=== PATIENT | female | born 1965 | race American Indian/Alaskan Native ===

== ENCOUNTER 2016-10-10 09:15 | Outpatient (CLI) | payer BC ==
--- NOTE | 2016-10-10 11:58 | Mammography Report ---
BILATERAL MAMMOGRAM: FINDINGS: The breast tissue is heterogeneously dense, which could obscure detection of small masses (approximately 50%-75% glandular). No mass, distortion, suspicious calcification, or skin change is seen. CAD was utilized. IMPRESSION: Negative mammogram. There is no mammographic evidence of malignancy. RECOMMENDATION: Follow-up per ACS guidelines. BI-RADS CATEGORY: 1 = Negative ACR BI-RADS MAMMOGRAPHIC CODES: 0 = Needs additional imaging evaluation; 1 = Negative; 2 = Benign; 3 = Probably benign; 4 = Suspicious; 5 = Malignant; 6 = Known biopsy-proven malignancy COMMENT: 1. Dense breast tissue, i.e., adenosis, fibrocystic changes, etc., may obscure an underlying neoplasm. 2. Approximately 10% of cancers are not detected with mammography. 3. A negative mammography report should not delay biopsy if a clinically suspicious mass is present. COMMENT: Patient follow-up letters are generated in [facility].
== END 2016-10-10 09:16 | disposition home or self-care (01) ==
LOC: MAMMO 09:15
PROVIDERS: ATTEND Obstetrics & Gynecology
DX: Z12.31 Encounter for screening mammogram for malignant neoplasm of breast (principal)
CPT/HCPCS: 77067; G0202

== ENCOUNTER 2016-12-13 07:14 | Emergency (ER) | payer BC, OTHER ==
[2016-12-13 07:26] VITALS: BP 146/96
[2016-12-13 09:33] LABS: Basophils % (Auto) 0.5 % (0.0-1.8); Eosinophils % (Auto) 1.4 % (0.0-4.3); Hemoglobin 14.1 gm/dl (10.1-14.3); Mean Corpuscular HGB Conc 34 % (30-34); Mean Corpuscular Hemoglobin 31 pg (28-32); Mean Corpuscular Volume 91 fl (79-97); Platelet Count 257 K/mm3 (140-440); Red Blood Count 4.61 M/mm3 (3.65-5.03); Red Cell Distribution Width 12.7 % (13.2-15.2); White Blood Count 10.7 K/mm3 (4.5-11.0)
[2016-12-13 09:44] LABS: Anion Gap 15 mmol/L; Blood Urea Nitrogen 12 mg/dL (7-17); Calcium 8.8 mg/dL (8.4-10.2); Carbon Dioxide 24 mmol/L (22-30); Glucose 85 mg/dL (65-100); Potassium 4.3 mmol/L (3.6-5.0); Sodium 140 mmol/L (137-145)
[2016-12-13 09:44] LABS: Bacteria,Urine 1+ /HPF (Negative); Bilirubin,Urine NEG (Negative); Blood,Urine NEG (Negative); Ketones,Urine NEG (Negative); Leukocyte Esterase,Urine TR (Negative); Mucus,Urine FEW /HPF; Nitrite,Urine NEG (Negative); Protein,Urine <15 mg/dL mg/dL (Negative); Urobilinogen,Urine < 2.0 mg/dL (<2.0)
--- NOTE | 2016-12-13 09:53 | Cat Scan Report ---
CT HEAD WITHOUT CONTRAST: 12/13/16 07:14:00 CLINICAL: Daily headaches for months. TECHNIQUE: 2.5-mm noncontrast scans. COMPARISON:None FINDINGS: The ventricles and sulci are normal for age. No abnormal density. No mass or mass effect. No hemorrhage, edema or extra-axial collection. The sinuses and mastoids are clear. Normal orbits and soft tissues. The calvarium and skull base are intact. IMPRESSION: Normal study.
--- NOTE | 2016-12-13 10:12 | Emergency Department Report ---
ED General Adult HPI - General Chief complaint: High BP Stated complaint: HIGH BP Time Seen by Provider: 12/13/16 09:02 Source: patient Mode of arrival: Ambulatory Limitations: No Limitations - History of Present Illness Initial comments: PT c/o headache. PT states her head has hurt her every day for months. PT states she was her PCP about this in October and was dx with htn (Again) but no medication was started. PT states she had htn years ago but her medication was stopped 2 years ago because her PMD at the time had her stop the 5 mg of lisinopril for a 2 week trial and her bp remained normal. PT states she felt like her PCP did not do anything in October, so she did not follow up. PT states she has bad sinuses and she talked to a pharmacist about her headache and her htn. PT states the pharmacist advised she stopped taking certain OTCs and only take Mucinex. PT denies relief. PT states she has made an appointment with ENT. PT states she checked her bp at [facility] yesterday at was 171/100. Complaint: headache -: Gradual, month(s) Location: head, face Severity scale (0 -10): 10 Quality: constant Consistency: constant Improves with: medication (Aleve, helps when she takes it ) Associated Symptoms: headaches. denies: chest pain, cough, fever/chills, nausea /vomiting Treatments Prior to Arrival: none - Related Data Previous Rx's Medication Instructions Recorded Last Taken Type Butalb/Acetamin/Caff 50-325-40 1 tab PO Q6HR PRN #12 tab 12/13/16 Unknown Rx [Fioricet] Fluticasone [Flonase] 1 spray NS QDAY #1 bottle 12/13/16 Unknown Rx Lisinopril [Zestril TAB] 5 mg PO QDAY #30 tablet 12/13/16 Unknown Rx Allergies Allergy/AdvReac Type Severity Reaction Status Date / Time No Known Allergies Allergy Unverified 06/24/14 12:53 ED Review of Systems ROS: Stated complaint: HIGH BP Other details as noted in HPI Comment: All other systems reviewed and negative Constitutional: denies: chills, fever Eyes: other (+ photophobia ) ENT: congestion Respiratory: denies: cough Cardiovascular: denies: chest pain, syncope Endocrine: denies: increased thirst Genitourinary: frequency. denies: dysuria Neurological: headache ED Past Medical Hx - Past Medical History Previous Medical History?: Yes Hx Hypertension: Yes (no meds) Additional medical history: hypothyroidism - Surgical History Past Surgical History?: No - Social History Smoking Status: Never Smoker Substance Use Type: Alcohol, Non Opiate Pain - Medications Home Medications: Home Medications Medication Instructions Recorded Confirmed Last Taken Type Butalb/Acetamin/Caff 50-325-40 1 tab PO Q6HR PRN #12 tab 12/13/16 Unknown Rx [Fioricet] Fluticasone [Flonase] 1 spray NS QDAY #1 bottle 12/13/16 Unknown Rx Lisinopril [Zestril TAB] 5 mg PO QDAY #30 tablet 12/13/16 Unknown Rx ED Physical Exam - General Limitations: No Limitations General appearance: alert, in no apparent distress - Head Head exam: Present: atraumatic, normocephalic, normal inspection, other ( frontal sinuses tender kwesi ) - Expanded Head Exam Expanded Head exam: Absent: laceration, abrasion, contusion, hematoma, racoon eyes, morgan's sign, tenderness of temporal artery - Eye Eye exam: Present: normal appearance, PERRL, EOMI, conjunctival injection Pupils: Present: normal accommodation - ENT ENT exam: Present: normal exam, mucous membranes moist, normal external ear exam , other (Turbinates enlarged kwesi ) - Neck Neck exam: Present: normal inspection, full ROM. Absent: tenderness - Respiratory Respiratory exam: Present: normal lung sounds bilaterally. Absent: respiratory distress, wheezes - Cardiovascular Cardiovascular Exam: Present: regular rate, normal rhythm, normal heart sounds - GI/Abdominal GI/Abdominal exam: Present: soft. Absent: tenderness - Extremities Exam Extremities exam: Present: normal inspection, full ROM - Back Exam Back exam: Present: normal inspection, full ROM. Absent: tenderness, CVA tenderness (R), CVA tenderness (L), muscle spasm - Neurological Exam Neurological exam: Present: alert, oriented X3, CN II-XII intact, normal gait - Expanded Neurological Exam Expanded Patient oriented to: Present: person, place, time Speech: Present: fluid speech Cranial nerves: EOM's Intact: Normal Cerebellar function: Finger to Nose: Normal Sensory exam: Upper Extremity Light Touch: Normal, Lower Extremity Light Touch: Normal Motor strength exam: RUE: 5, LUE: 5, RLE: 5, LLE: 5 Best Eye Response (Ellyn): (4) open spontaneously Best Motor Response (Ellyn): (6) obeys commands Best Verbal Response (Ellyn): (5) oriented [place] Total: 15 - Psychiatric Psychiatric exam: Present: normal affect, normal mood - Skin Skin exam: Present: warm, dry, intact, normal color ED Course Vital Signs 12/13/16 07:22 Temperature 97.8 F Pulse Rate 96 H Respiratory 18 Rate Blood Pressure 146/96 O2 Sat by Pulse 100 Oximetry - Reevaluation(s) Reevaluation #1: 12/13/16 10:44 PT aware of lab and CT findings. PT's bp rechecked at 168/109. PT aware RX for lisinopril will be given. PT aware she must follow up with PCP for bp recheck. PT advised to keep her ENT appointment. PT aware that if her headaches persist, she may need a neurology referral from PCP - Pulse Oximetry Interpretation Digit-Finger Initial Pulse Oximetry Readin Actions Taken: none ED Medical Decision Making - Lab Data Result diagrams: 12/13/16 09:16 12/13/16 09:16 Lab Results 12/13/16 12/13/16 12/13/16 Range/Units 09:16 09:16 09:30 WBC 10.7 (4.5-11.0) K/mm3 RBC 4.61 (3.65-5.03) M/mm3 Hgb 14.1 (10.1-14.3) gm/dl Hct 42.0 (30.3-42.9) % MCV 91 (79-97) fl MCH 31 (28-32) pg MCHC 34 (30-34) % RDW 12.7 L (13.2-15.2) % Plt Count 257 (140-440) K/mm3 Lymph % (Auto) 22.7 (13.4-35.0) % [place] % (Auto) 5.7 (0.0-7.3) % Eos % (Auto) 1.4 (0.0-4.3) % Baso % (Auto) 0.5 (0.0-1.8) % Lymph # 2.4 (1.2-5.4) K/mm3 [place] # 0.6 (0.0-0.8) K/mm3 Eos # 0.1 (0.0-0.4) K/mm3 Baso # 0.0 (0.0-0.1) K/mm3 Seg Neutrophils % 69.7 (40.0-70.0) % Seg Neutrophils # 7.5 (1.8-7.7) K/mm3 Sodium 140 (137-145) mmol/L Potassium 4.3 (3.6-5.0) mmol/L Chloride 105.0 (98-107) mmol/L Carbon Dioxide 24 (22-30) mmol/L Anion Gap 15 mmol/L BUN 12 (7-17) mg/dL Creatinine 0.8 (0.7-1.2) mg/dL Estimated GFR > 60 ml/min BUN/Creatinine Ratio 15.00 % Glucose 85 (65-100) mg/dL Calcium 8.8 (8.4-10.2) mg/dL Urine Color Yellow (Yellow) Urine Turbidity Clear (Clear) Urine pH 6.0 (5.0-7.0) Ur Specific [place] 1.020 (1.003-1.030) Urine Protein <15 mg/dl (Negative) mg/dL Urine Glucose (UA) Neg (Negative) mg/dL Urine Ketones Neg (Negative) mg/dL Urine Blood Neg (Negative) Urine Nitrite Neg (Negative) Urine Bilirubin Neg (Negative) Urine Urobilinogen < 2.0 (<2.0) mg/dL Ur Leukocyte Esterase Tr (Negative) Urine WBC (Auto) 1.0 (0.0-6.0) /HPF Urine RBC (Auto) 2.0 (0.0-6.0) /HPF U Epithel Cells (Auto) 9.0 (0-13.0) /HPF Urine Bacteria (Auto) 1+ (Negative) /HPF Urine Mucus Few /HPF - Radiology Data Radiology results: report reviewed CT head - NAP - Differential Diagnosis intracranial process, migraine, htn, uti, new onset dm Critical Care Time: No Critical care attestation.: If time is entered above; I have spent that time in minutes in the direct care of this critically ill patient, excluding procedure time. ED Disposition Clinical Impression: Elevated blood pressure reading, Urinary frequency Headache Qualifiers: Headache type: unspecified Headache chronicity pattern: chronic headache Intractability: not intractable Qualified Code(s): R51 - Headache Disposition: DC-01 TO HOME OR SELFCARE Is pt being admited?: No Does the pt Need Aspirin: No Condition: Stable Instructions: Acute Headache (ED), Hypertension (ED) Additional Instructions: Follow up with PCP for bp recheck in 3-5 days Return to ed if worsening or concerns Prescriptions: Butalb/Acetamin/Caff 50-325-40 [Fioricet] 1 tab PO Q6HR PRN #12 tab PRN Reason: Headache Fluticasone [Flonase] 1 spray NS QDAY #1 bottle Lisinopril [Zestril TAB] 5 mg PO QDAY #30 tablet Referrals: PRIMARY CARE, [Primary Care Provider] - 3-5 Days Time of Disposition: 10:49
== END 2016-12-13 11:06 | disposition home or self-care (01) ==
LOC: ED 07:14
DX: I10 Essential (primary) hypertension (principal); R51 Headache; R35.0 Frequency of micturition; E03.9 Hypothyroidism, unspecified
CPT/HCPCS: 36415; 70450; 80048; 81001; 85025

== ENCOUNTER 2017-10-16 09:52 | Inpatient (IN) | payer OTHER ==
[2017-10-16] MEDS ORDERED: MORPHINE IV ONE (11:07)
[2017-10-16] MEDS ORDERED: ZOFRAN IV ONE (11:07)
[2017-10-16] MEDS ORDERED: NITRO-BID 2% TP ONE (11:07)
--- NOTE | 2017-10-16 11:13 | Emergency Department Report ---
HPI - General Chief Complaint: Chest Pain Time Seen by Provider: 10/16/17 10:59 - HPI HPI: Room 9 The patient is a 52-year-old female presenting with a chief complaint of chest pain. The patient states when she awakened this morning she had chest tightness. The patient stated the tightness been constant and associated with right upper extremity tingling. The patient states she has felt slightly short of breath with the chest tightness but denies nausea/vomiting or diaphoresis. The patient gives her chest tightness or score 6/10. The patient states she's never had a stress test or cardiac catheterization Location: Chest Duration: Constant since this morning Quality: Tightness Severity: 6/10 Modifying factors: [see above] Context: [see above] Mode of transportation: Unknown ED Past Medical Hx - Past Medical History Previous Medical History?: Yes Hx Hypertension: Yes (no meds) Additional medical history: hypothyroidism - Surgical History Past Surgical History?: No Additional Surgical History: Lysis of adhesions - Family History Family history: no significant - Social History Smoking Status: Never Smoker Substance Use Type: None (denies illicit drug use), Alcohol (occasional) - Medications Home Medications: Home Medications Medication Instructions Recorded Confirmed Last Taken Type Levothyroxine [Synthroid] 50 mcg PO QDAY 10/16/17 10/16/17 10/16/17 History ED Review of Systems ROS: Stated complaint: CHEST PAIN Other details as noted in HPI Constitutional: denies: diaphoresis Respiratory: shortness of breath Cardiovascular: chest pain Gastrointestinal: denies: nausea, vomiting Physical Exam - Physical Exam Vital Signs: Vital Signs 10/16/17 10:10 Temperature 98 F Pulse Rate 86 Respiratory 18 Rate Blood Pressure 178/111 O2 Sat by Pulse 99 Oximetry Physical Exam: GENERAL: The patient is well-developed well-nourished female lying on stretcher not appearing to be in acute distress. [] HEENT: Normocephalic. Atraumatic. Extraocular motions are intact. Patient has moist mucous membranes. NECK: Supple. Trachea midline CHEST/LUNGS: Clear to auscultation. There is no respiratory distress noted. HEART/CARDIOVASCULAR: Regular. There is no tachycardia. There is no gallop rub or murmur. ABDOMEN: Abdomen is soft, nontender. Patient has normal bowel sounds. There is no abdominal distention. SKIN: There is no rash. There is no diaphoresis. NEURO: The patient is awake, alert, and oriented. The patient is cooperative. The patient has normal speech MUSCULOSKELETAL: There is no evidence of acute injury. ED Course Vital Signs 10/16/17 10:10 Temperature 98 F Pulse Rate 86 Respiratory 18 Rate Blood Pressure 178/111 O2 Sat by Pulse 99 Oximetry ED Medical Decision Making - Lab Data Result diagrams: 10/16/17 11:20 10/16/17 11:20 Laboratory Tests 10/16/17 10/16/17 11:20 11:20 WBC 9.4 RBC 4.58 Hgb 14.1 Hct 42.0 MCV 92 MCH 31 MCHC 34 RDW 13.3 Plt Count TNR Lymph % (Auto) 31.1 [place] % (Auto) 3.0 Eos % (Auto) 4.7 H Baso % (Auto) 0.3 Lymph # 2.9 [place] # 0.3 Eos # 0.4 Baso # 0.0 Seg Neutrophils % 60.9 Seg Neutrophils # 5.7 Sodium 137 Potassium 4.9 Chloride 102.8 Carbon Dioxide 23 Anion Gap 16 BUN 10 Creatinine 0.8 Estimated GFR > 60 BUN/Creatinine Ratio 13 Glucose 94 Calcium 9.3 Total Creatine Kinase 128 CK-MB (CK-2) 1.4 CK-MB (CK-2) Rel Index 1.0 Troponin T < 0.010 - EKG Data -: EKG Interpreted by Me EKG shows normal: sinus rhythm Rate: normal - EKG Data When compared to previous EKG there are: previous EKG unavailable Interpretation: other (no ischemic changes seen) - Radiology Data Radiology results: image reviewed (chest x-ray) interpreted by me: Chest x-ray-no focal infiltrates, no pneumothorax - Differential Diagnosis ACS, GERD, pericarditis Critical care attestation.: If time is entered above; I have spent that time in minutes in the direct care of this critically ill patient, excluding procedure time. ED Disposition Clinical Impression: Chest tightness Disposition: DC-09 OP ADMIT IP TO THIS HOSP Is pt being admited?: Yes Does the pt Need Aspirin: Yes Condition: Fair Referrals: PRIMARY CARE, [Referring] - 3-5 Days Time of Disposition: 12:27 (hospitalist notified (Dr Fierro))
[2017-10-16] MEDS ORDERED: ASPIRIN PO ONE (11:14)
[2017-10-16 11:45] LABS: Basophils % (Auto) 0.3 % (0.0-1.8); Eosinophils # (Auto) 0.4 K/mm3 (0.0-0.4); Eosinophils % (Auto) 4.7 % (0.0-4.3); Hemoglobin 14.1 gm/dl (10.1-14.3); Lymphocytes # (Auto) 2.9 K/mm3 (1.2-5.4); Lymphocytes % (Auto) 31.1 % (13.4-35.0); Mean Corpuscular HGB Conc 34 % (30-34); Mean Corpuscular Hemoglobin 31 pg (28-32); Mean Corpuscular Volume 92 fl (79-97); Monocytes # (Auto) 0.3 K/mm3 (0.0-0.8); Red Blood Count 4.58 M/mm3 (3.65-5.03); Red Cell Distribution Width 13.3 % (13.2-15.2)
[2017-10-16 11:51] LABS: Platelet Count TNR K/mm3 (140-440)
--- NOTE | 2017-10-16 11:56 | XRay Report ---
CHEST ONE VIEW INDICATION: Chest pain. COMPARISON: None similar. FINDINGS: Portable, single, frontal chest radiograph demonstrates normal cardiomediastinal silhouette. Clear lungs. Unremarkable bones. Extrinsic EKG leads. CONCLUSION: No acute disease in the chest. Thank you for the opportunity to participate in this patient's care.
[2017-10-16 12:07] LABS: Creatine Kinase MB 1.4 ng/mL (0.0-4.0)
[2017-10-16 12:08] LABS: BUN/Creatinine Ratio 13; Blood Urea Nitrogen 10 mg/dL (7-17); Calcium 9.3 mg/dL (8.4-10.2); Hemolysis Index 232
[2017-10-16 12:59] LABS: Basophils # (Auto) 0.1 K/mm3 (0.0-0.1); Basophils % (Auto) 0.6 % (0.0-1.8); Eosinophils # (Auto) 0.2 K/mm3 (0.0-0.4); Hematocrit 39.4 % (30.3-42.9); Hemoglobin 13.8 gm/dl (10.1-14.3); Lymphocytes # (Auto) 2.6 K/mm3 (1.2-5.4); Lymphocytes % (Auto) 29.7 % (13.4-35.0); Mean Corpuscular HGB Conc 35 % (30-34); Mean Corpuscular Hemoglobin 31 pg (28-32); Mean Corpuscular Volume 90 fl (79-97); Monocytes # (Auto) 0.6 K/mm3 (0.0-0.8); Monocytes % (Auto) 6.9 % (0.0-7.3); Platelet Count 249 K/mm3 (140-440); Red Cell Distribution Width 13.1 % (13.2-15.2)
[2017-10-16] MEDS ORDERED: TYLENOL PO PRN ×2 (18:27→23:35)
--- NOTE | 2017-10-16 23:09 | History and Physical Report ---
History of Present Illness Date of examination: 10/16/17 Date of admission: 10/16/17 12:29 Chief complaint: Chief complaint: Chest pain since morning History of present illness: EUGENIA : 52-year-old -Stateless female comes in for left-sided chest pain. She woke up this morning with chest tightness. Radiating to the right upper extremity with tingling sensation. Also slightly short of breath but denies nausea vomiting or diaphoresis. Chest tightness is 6/10. No precipitating factors no relieving factors. Patient never had a stress or cardiac catheterization. Patient has a history of hypertension and hypothyroidism Past Medical History Previous Medical History?: Yes Hx Hypertension: Yes (no meds) Additional medical history: hypothyroidism Surgical History Past Surgical History?: No Additional Surgical History: Lysis of adhesions Family History Family history: no significant Social History Smoking Status: Never Smoker Substance Use Type: None (denies illicit drug use), Alcohol (occasional) -Medications Home Medications: Home Medications Medication Instructions Recorded Confirmed Last Taken Type Levothyroxine [Synthroid] 50 mcg PO QDAY 10/16/17 10/16/17 10/16/17 History Review of Systems ROS: Stated complaint: CHEST PAIN Other details as noted in HPI Constitutional: denies: diaphoresis Respiratory: shortness of breath Cardiovascular: chest pain Gastrointestinal: denies: nausea, vomiting 14 point review of systems done and essentially negative Medications and Allergies Allergies Allergy/AdvReac Type Severity Reaction Status Date / Time No Known Allergies Allergy Unverified 06/24/14 12:53 Home Medications Medication Instructions Recorded Confirmed Last Taken Type Levothyroxine [Synthroid] 50 mcg PO QDAY 10/16/17 10/16/17 10/16/17 History Active Meds: Active Medications Acetaminophen (Tylenol) 650 mg PO Q6H PRN PRN Reason: Pain, Mild (1-3) Last Admin: 10/16/17 18:40 Dose: 650 mg Exam - Constitutional Vitals: Temp Pulse Resp BP Pulse Ox 97.7 F 87 18 165/87 98 10/16/17 19:58 10/16/17 19:58 10/16/17 22:00 10/16/17 19:58 10/16/17 19:58 General appearance: Present: no acute distress, well-nourished - EENT Eyes: Present: PERRL ENT: hearing intact, clear oral mucosa - Neck Neck: Present: supple, normal ROM - Respiratory Respiratory effort: normal Respiratory: bilateral: CTA - Cardiovascular Heart Sounds: Present: S1 & S2. Absent: rub, click - Extremities Extremities: pulses symmetrical, No edema Peripheral Pulses: within normal limits - Abdominal General gastrointestinal: Present: soft, non-tender, non-distended, normal bowel sounds Female genitourinary: Present: normal - Integumentary Integumentary: Present: clear, warm, dry - Musculoskeletal Musculoskeletal: gait normal, strength equal bilaterally - Psychiatric Psychiatric: appropriate mood/affect, intact judgment & insight - Neurologic Neurologic: CNII-XII intact, moves all extremities Results - Labs CBC & Chem 7: 10/16/17 12:42 10/16/17 11:20 Labs: Laboratory Last Values WBC 8.9 K/mm3 (4.5-11.0) 10/16/17 12:42 RBC 4.40 M/mm3 (3.65-5.03) 10/16/17 12:42 Hgb 13.8 gm/dl (10.1-14.3) 10/16/17 12:42 Hct 39.4 % (30.3-42.9) 10/16/17 12:42 MCV 90 fl (79-97) 10/16/17 12:42 MCH 31 pg (28-32) 10/16/17 12:42 MCHC 35 % (30-34) H 10/16/17 12:42 RDW 13.1 % (13.2-15.2) L 10/16/17 12:42 Plt Count 249 K/mm3 (140-440) 10/16/17 12:42 Lymph % (Auto) 29.7 % (13.4-35.0) 10/16/17 12:42 [place] % (Auto) 6.9 % (0.0-7.3) 10/16/17 12:42 Eos % (Auto) 2.0 % (0.0-4.3) 10/16/17 12:42 Baso % (Auto) 0.6 % (0.0-1.8) 10/16/17 12:42 Lymph # 2.6 K/mm3 (1.2-5.4) 10/16/17 12:42 [place] # 0.6 K/mm3 (0.0-0.8) 10/16/17 12:42 Eos # 0.2 K/mm3 (0.0-0.4) 10/16/17 12:42 Baso # 0.1 K/mm3 (0.0-0.1) 10/16/17 12:42 Seg Neutrophils % 60.8 % (40.0-70.0) 10/16/17 12:42 Seg Neutrophils # 5.4 K/mm3 (1.8-7.7) 10/16/17 12:42 Sodium 137 mmol/L (137-145) 10/16/17 11:20 Potassium 4.9 mmol/L (3.6-5.0) 10/16/17 11:20 Chloride 102.8 mmol/L (98-107) 10/16/17 11:20 Carbon Dioxide 23 mmol/L (22-30) 10/16/17 11:20 Anion Gap 16 mmol/L 10/16/17 11:20 BUN 10 mg/dL (7-17) 10/16/17 11:20 Creatinine 0.8 mg/dL (0.7-1.2) 10/16/17 11:20 Estimated GFR > 60 ml/min 10/16/17 11:20 BUN/Creatinine Ratio 13 % 10/16/17 11:20 Glucose 94 mg/dL (65-100) 10/16/17 11:20 Calcium 9.3 mg/dL (8.4-10.2) 10/16/17 11:20 Total Creatine Kinase 128 units/L (30-135) 10/16/17 11:20 CK-MB (CK-2) 1.4 ng/mL (0.0-4.0) 10/16/17 11:20 CK-MB (CK-2) Rel Index 1.0 (0-4) 10/16/17 11:20 Troponin T < 0.010 ng/mL (0.00-0.029) 10/16/17 11:20 Short CBC 10/16/17 10/16/17 Range/Units 11:20 12:42 WBC 9.4 8.9 (4.5-11.0) K/mm3 Hgb 14.1 13.8 (10.1-14.3) gm/dl Hct 42.0 39.4 (30.3-42.9) % Plt Count TNR 249 BMP 10/16/17 11:20 Sodium 137 Potassium 4.9 Chloride 102.8 Carbon Dioxide 23 BUN 10 Creatinine 0.8 Glucose 94 Calcium 9.3 Cardiac Enzymes 10/16/17 Range/Units 11:20 Total Creatine Kinase 128 (30-135) units/L CK-MB (CK-2) 1.4 (0.0-4.0) ng/mL Troponin T < 0.010 (0.00-0.029) ng/mL - Imaging and Cardiology EKG: report reviewed (normal sinus rhythm. Probable left atrial enlargement. Left frontal hypertrophy present. Repeat repolarization abnormalities and V1 and V2 V3 V4 V5 and V6 present. EKG interpreted by me.) Imaging and Cardiology: Chest x-ray FINDINGS: Portable, single, frontal chest radiograph demonstrates normal cardiomediastinal silhouette. Clear lungs. Unremarkable bones. Extrinsic EKG leads. CONCLUSION: No acute disease in the chest. Assessment and Plan Advance Directives: Yes (full code) VTE prophylaxis?: Chemical Plan of care discussed with patient/family: Yes - Patient Problems (1) Chest pain Current Visit: Yes Status: Acute Qualifiers: Chest pain type: unspecified Qualified Code(s): R07.9 - Chest pain, unspecified Plan to address problem: Serial cardiac enzymes and Lexiscan the morning Differential diagnosis of costochondritis ruled out. GERD a possibility. (2) Hypertension Current Visit: Yes Status: Chronic Qualifiers: Hypertension type: essential hypertension Qualified Code(s): I10 - Essential (primary) hypertension Plan to address problem: Continue lisinopril 5 mg once a day (3) Tension headache Current Visit: Yes Status: Inactive Plan to address problem: Fioricet was not ordered. We will order if necessary (4) Allergic rhinitis Current Visit: Yes Status: Chronic Qualifiers: Allergic rhinitis trigger: pollen Plan to address problem: Hydroxyzine initiated (5) DVT prophylaxis Current Visit: Yes Status: Acute Plan to address problem: Heparin subcutaneously
[2017-10-16] MEDS ORDERED: ZOFRAN IV PRN (23:35)
[2017-10-16] MEDS ORDERED: SODIUM CHLORIDE FLUSH SYRINGE 10 ML IV PRN (23:35)
[2017-10-16] MEDS ORDERED: PERCOCET 5/325 PO PRN (23:35)
[2017-10-16] MEDS ORDERED: AMBIEN PO PRN (23:35)
[2017-10-16] MEDS ORDERED: MORPHINE IV PRN (23:35)
[2017-10-17 06:13] LABS: Alanine Aminotransferase 12 units/L (7-56); Albumin 3.4 g/dL (3.9-5); BUN/Creatinine Ratio 13; Blood Urea Nitrogen 12 mg/dL (7-17); Calcium 8.3 mg/dL (8.4-10.2); Hemolysis Index 25
[2017-10-17] MEDS ORDERED: LEXISCAN IV ONE ×2 (08:06→08:21)
[2017-10-17] MEDS ORDERED: ZESTRIL PO SCH ×2 (10:00→14:00)
[2017-10-17] MEDS ORDERED: PEPCID PO SCH (10:00)
[2017-10-17] MEDS ORDERED: HEPARIN SUB-Q SCH (10:00)
[2017-10-17] MEDS ORDERED: SYNTHROID PO SCH (10:00)
[2017-10-17] MEDS ORDERED: SODIUM CHLORIDE FLUSH SYRINGE 10 ML IV SCH (10:00)
[2017-10-17] MEDS ORDERED: ZESTRIL PO ONE (10:30)
[2017-10-17 12:32] VITALS: BP 174/97
[2017-10-17] MEDS ORDERED: NORVASC PO SCH (14:00)
--- NOTE | 2017-10-17 14:04 | Discharge Summary ---
Providers - Providers Date of Admission: 10/16/17 12:29 Date of discharge: 10/17/17 Attending physician: LETITIA MOFFETT Primary care physician: CLARISA SIFUENTES Hospitalization Condition: Stable Hospital course: Patient is a 52 you woman with a history of hypertension, off lisinopril and hypothyroidism with pw right sided chest pains. She had negative stress test. Her main compliant is frontal headache with nasal congestion and pressure. Chest pains, atypical msk in nature most likely Allergic rhinitis: flonase prn Hypothyroidism: continue levothyroxine and f/up with pcp Hypertension urgency: restart her home lisinopril and add norvasc Disposition: DC-01 TO HOME OR SELFCARE Time spent for discharge: 36 minutes Core Measure Documentation - Palliative Care Palliative Care/ Comfort Measures: Not Applicable - Core Measures Any of the following diagnoses?: none - VTE Discharge Requirements Deep Vein Thrombosis/Pulmonary Embolism Present on Admission: No Has pt received <5 days of overlap therapy or INR<2.0: No Anticoagulant overlap therapy prescribed at discharge: No Contraindication No Overlap Therapy order at DC: Not Indicated Exam - Constitutional Vitals: Temp Pulse Resp BP Pulse Ox 98.1 F 90 16 174/97 97 10/17/17 12:05 10/17/17 12:05 10/17/17 12:05 10/17/17 12:05 10/17/17 12:05 General appearance: Present: no acute distress - EENT Eyes: Present: PERRL, EOM intact ENT: hearing intact, clear oral mucosa, other (enlarged turbinates, she has freckles) - Neck Neck: Present: supple, normal ROM - Respiratory Respiratory effort: normal Respiratory: right: other (substernal to right chest wall tenderness), bilateral : CTA - Cardiovascular Rhythm: regular Heart Sounds: Present: S1 & S2 - Extremities Extremities: no ischemia, pulses intact, pulses symmetrical Peripheral Pulses: within normal limits - Abdominal General gastrointestinal: Present: soft, non-tender, non-distended, normal bowel sounds - Integumentary Integumentary: Present: clear, warm, dry - Musculoskeletal Musculoskeletal: strength equal bilaterally - Psychiatric Psychiatric: appropriate mood/affect, intact judgment & insight - Neurologic Neurologic: CNII-XII intact, no focal deficits, moves all extremities Plan Activity: other (no strenous activity until cleared by pcp) Diet: low salt Special Instructions: record daily BP diary (keep a log and take to pcp) Follow up with: PRIMARY CARE, [Referring] - 3-5 Days Prescriptions: amLODIPine [Norvasc] 10 mg PO QDAY #30 tablet Cetirizine HCl [Zyrtec] 10 mg PO DAILY #7 tablet Famotidine [Pepcid] 20 mg PO BID #20 tablet Fluticasone [Flonase] 1 spray NS QDAY #1 bottle Lisinopril [Zestril TAB] 20 mg PO QDAY #30 tablet
[2017-10-17] MEDS ORDERED: ATARAX PO PRN (20:37)
== END 2017-10-17 14:50 | disposition home or self-care (01) | DRG 313 ==
LOC: ED 09:52 → 4A 12:29
PROVIDERS: ADMIT Internal Medicine; ATTEND Internal Medicine
DX: R07.89 Other chest pain (principal); I10 Essential (primary) hypertension; E03.9 Hypothyroidism, unspecified; J30.9 Allergic rhinitis, unspecified; G44.209 Tension-type headache, unspecified, not intractable; I16.0 Hypertensive urgency; Z72.89 Other problems related to lifestyle; Z79.899 Other long term (current) drug therapy
CPT/HCPCS: 36415; 71045; 78452; 80048; 80053; 82550; 82553; 83036; 84484; 85025; 93005; 93010; 93017; 96374; 96375; A9502; J1644; J2270; J2405; J2785

== ENCOUNTER 2019-08-19 11:48 | Emergency (ER) | payer BC ==
--- NOTE | 2019-08-19 12:12 | Event Note ---
ED Screening Note ED Screening Note: Ms. Isabel is a 54 yo female with hx of HTN and thyroid dz. Has had recurrent chest pain. Normal cardiac inpatient w/u 2017 at this hospital. This initial assessment/diagnostic orders/clinical plan/treatment(s) is/are subject to change based on patients health status, clinical progression and re-assessment by fellow clinical providers in the ED. Further treatment and workup at subsequent clinical providers discretion. Patient/guardian urged not to elope from the ED as their condition may be serious if not clinically assessed and managed. Initial orders include: ekg labs XR
--- NOTE | 2019-08-19 12:28 | Emergency Department Report ---
ED Chest Pain HPI - General Chief Complaint: Chest Pain Stated Complaint: RT SIDE NUMB/CHEST PAIN Time Seen by Provider: 08/19/19 12:19 Source: patient Mode of arrival: Ambulatory Limitations: No Limitations - History of Present Illness Initial Comments: 54-year-old -Mongolian female with history of hypertension and thyroid disease presents with complaints of right-sided chest pain x3 days. She describes the pain as a intermittent tightness and rates it as a 6/10 in severity. She states the tightness seems to worsen when she lies down and she also has some shortness of breath. She denies any leg pain/swelling, recent long travel, history of DVT/PE, history of CT/CVA, hormones, hemoptysis, or recent surgeries. She admits to extended periods of sitting up to 8 hours at work on a daily basis. She also reports family history of heart disease in her father. She denies worsening of pain with exertion MD Complaint: chest pain -: Sudden Onset: during rest Pain Radiation: none - Related Data Home Medications Medication Instructions Recorded Confirmed Last Taken Levothyroxine [Synthroid] 50 mcg PO QDAY 10/16/17 10/16/17 10/16/17 Previous Rx's Medication Instructions Recorded Last Taken Type Acetaminophen [Acetaminophen TAB] 650 mg PO Q4H PRN #30 tablet 10/17/17 Unknown Rx Cetirizine HCl [Zyrtec] 10 mg PO DAILY #7 tablet 10/17/17 Unknown Rx Famotidine [Pepcid] 20 mg PO BID #20 tablet 10/17/17 Unknown Rx Fluticasone [Flonase] 1 spray NS QDAY #1 bottle 10/17/17 Unknown Rx amLODIPine 10 mg PO QDAY #30 tablet 10/17/17 Unknown Rx lisinopriL [Zestril TAB] 20 mg PO QDAY #30 tablet 10/17/17 Unknown Rx Methocarbamol [Robaxin] 1,000 mg PO TID PRN #20 tablet 08/19/19 Unknown Rx Naproxen 500 mg PO BID PRN #10 tablet 08/19/19 Unknown Rx traMADoL [Ultram 50 MG tab] 50 mg PO Q8HR PRN #8 tablet 08/19/19 Unknown Rx Allergies Allergy/AdvReac Type Severity Reaction Status Date / Time No Known Allergies Allergy Verified 08/19/19 11:51 Heart Score - HEART Score History: Moderately suspicious EKG: Normal Age: 45-65 Risk factors: 1-2 risk factors Troponin: < normal limit HEART Score: 3 ED Review of Systems ROS: Stated complaint: RT SIDE NUMB/CHEST PAIN Other details as noted in HPI Constitutional: denies: chills, fever Eyes: denies: vision change Respiratory: orthopnea, shortness of breath, SOB at rest. denies: cough, SOB with exertion Cardiovascular: chest pain. denies: palpitations, edema, syncope Endocrine: denies: excessive sweating, flushing Gastrointestinal: denies: abdominal pain, nausea, vomiting Genitourinary: denies: frequency, hematuria Musculoskeletal: denies: back pain Skin: denies: rash, lesions Neurological: denies: headache, weakness, numbness, paresthesias, confusion, abnormal gait, vertigo Hematological/Lymphatic: denies: easy bleeding, easy bruising ED Past Medical Hx - Past Medical History Hx Hypertension: Yes (no meds) Additional medical history: hypothyroidism - Surgical History Additional Surgical History: Lysis of adhesions - Social History Smoking Status: Never Smoker Substance Use Type: None - Medications Home Medications: Home Medications Medication Instructions Recorded Confirmed Last Taken Type Levothyroxine [Synthroid] 50 mcg PO QDAY 10/16/17 10/16/17 10/16/17 History Acetaminophen [Acetaminophen TAB] 650 mg PO Q4H PRN #30 tablet 10/17/17 Unknown Rx Cetirizine HCl [Zyrtec] 10 mg PO DAILY #7 tablet 10/17/17 Unknown Rx Famotidine [Pepcid] 20 mg PO BID #20 tablet 10/17/17 Unknown Rx Fluticasone [Flonase] 1 spray NS QDAY #1 bottle 10/17/17 Unknown Rx amLODIPine 10 mg PO QDAY #30 tablet 10/17/17 Unknown Rx lisinopriL [Zestril TAB] 20 mg PO QDAY #30 tablet 10/17/17 Unknown Rx Methocarbamol [Robaxin] 1,000 mg PO TID PRN #20 tablet 08/19/19 Unknown Rx Naproxen 500 mg PO BID PRN #10 tablet 08/19/19 Unknown Rx traMADoL [Ultram 50 MG tab] 50 mg PO Q8HR PRN #8 tablet 08/19/19 Unknown Rx ED Physical Exam - General Limitations: No Limitations General appearance: alert, in no apparent distress - Head Head exam: Present: atraumatic, normocephalic - Eye Eye exam: Present: normal appearance, PERRL. Absent: scleral icterus - ENT ENT exam: Present: normal exam - Neck Neck exam: Present: normal inspection, full ROM. Absent: thyromegaly - Respiratory Respiratory exam: Present: normal lung sounds bilaterally, chest wall tenderness (right parasternal ). Absent: respiratory distress - Cardiovascular Cardiovascular Exam: Present: regular rate, normal rhythm. Absent: systolic murmur, diastolic murmur, rubs, gallop - GI/Abdominal GI/Abdominal exam: Present: soft, normal bowel sounds. Absent: distended, tend erness, guarding, rebound, rigid - Extremities Exam Extremities exam: Present: normal inspection, full ROM (No edema noted bilaterally). Absent: tenderness, pedal edema, calf tenderness - Back Exam Back exam: Present: normal inspection - Neurological Exam Neurological exam: Present: alert, oriented X3, normal gait - Psychiatric Psychiatric exam: Present: normal affect, normal mood - Skin Skin exam: Present: warm, dry, intact, normal color. Absent: rash ED Course Vital Signs 08/19/19 08/19/19 08/19/19 12:00 16:09 17:20 Temperature 97.2 F L Pulse Rate 93 H 84 Respiratory 18 20 16 Rate Blood Pressure 119/70 Blood Pressure 111/68 [Right] O2 Sat by Pulse 98 100 Oximetry ED Medical Decision Making - Lab Data Result diagrams: 08/19/19 13:09 08/19/19 13:09 Lab Results 08/19/19 08/19/19 08/19/19 Range/Units 13:09 13:09 13:09 WBC 7.5 (4.5-11.0) K/mm3 RBC 4.32 (3.65-5.03) M/mm3 Hgb 13.7 (10.1-14.3) gm/dl Hct 39.2 (30.3-42.9) % MCV 91 (79-97) fl MCH 32 (28-32) pg MCHC 35 H (30-34) % RDW 13.6 (13.2-15.2) % Plt Count 277 (140-440) K/mm3 Lymph % (Auto) 30.9 (13.4-35.0) % [place] % (Auto) 4.8 (0.0-7.3) % Eos % (Auto) 3.7 (0.0-4.3) % Baso % (Auto) 0.6 (0.0-1.8) % Lymph # 2.3 (1.2-5.4) K/mm3 [place] # 0.4 (0.0-0.8) K/mm3 Eos # 0.3 (0.0-0.4) K/mm3 Baso # 0.0 (0.0-0.1) K/mm3 Seg Neutrophils % 60.0 (40.0-70.0) % Seg Neutrophils # 4.5 (1.8-7.7) K/mm3 D-Dimer 838.69 H (0-234) ng/mlDDU Sodium 138 (137-145) mmol/L Potassium 3.8 (3.6-5.0) mmol/L Chloride 100.1 (98-107) mmol/L Carbon Dioxide 22 (22-30) mmol/L Anion Gap 20 mmol/L BUN 13 (7-17) mg/dL Creatinine 1.0 (0.7-1.2) mg/dL Estimated GFR > 60 ml/min BUN/Creatinine Ratio 13 % Glucose 119 H (65-100) mg/dL Calcium 9.6 (8.4-10.2) mg/dL Troponin T < 0.010 (0.00-0.029) ng/mL TSH (0.270-4.200) mlU/mL 08/19/19 08/19/19 Range/Units 14:30 14:30 WBC (4.5-11.0) K/mm3 RBC (3.65-5.03) M/mm3 Hgb (10.1-14.3) gm/dl Hct (30.3-42.9) % MCV (79-97) fl MCH (28-32) pg MCHC (30-34) % RDW (13.2-15.2) % Plt Count (140-440) K/mm3 Lymph % (Auto) (13.4-35.0) % [place] % (Auto) (0.0-7.3) % Eos % (Auto) (0.0-4.3) % Baso % (Auto) (0.0-1.8) % Lymph # (1.2-5.4) K/mm3 [place] # (0.0-0.8) K/mm3 Eos # (0.0-0.4) K/mm3 Baso # (0.0-0.1) K/mm3 Seg Neutrophils % (40.0-70.0) % Seg Neutrophils # (1.8-7.7) K/mm3 D-Dimer (0-234) ng/mlDDU Sodium (137-145) mmol/L Potassium (3.6-5.0) mmol/L Chloride (98-107) mmol/L Carbon Dioxide (22-30) mmol/L Anion Gap mmol/L BUN (7-17) mg/dL Creatinine (0.7-1.2) mg/dL Estimated GFR ml/min BUN/Creatinine Ratio % Glucose (65-100) mg/dL Calcium (8.4-10.2) mg/dL Troponin T < 0.010 (0.00-0.029) ng/mL TSH 3.870 (0.270-4.200) mlU/mL - EKG Data EKG shows normal: sinus rhythm Rate: normal - EKG Data When compared to previous EKG there are: previous EKG unavailable Interpretation: other (left atrial enlargement ) - Radiology Data Radiology results: report reviewed CTA CHEST WITH IV CONTRAST INDICATION: right sided chest pain and SOB. TECHNIQUE: Axial CT images were obtained through the chest after injection of IV contrast. 3 plane MIP reconstructions were produced. All CT scans at this location are performed using CT dose reduction for ALARA by means of automated exposure control. COMPARISON: None available. FINDINGS: Pulmonary Arteries: No pulmonary emboli. Thoracic Aorta: No acute abnormality. Heart: Normal. Lungs: No acute air space or interstitial disease. Pleura: No pleural effusion. No pneumothorax. Lymph Nodes: No significant adenopathy. Additional Findings: None. Upper Abdomen: No acute findings. Skeletal Structures: No significant osseous abnormality. IMPRESSION: 1. No CT evidence for pulmonary - Medical Decision Making 54-year-old -Mongolian female with history of hypertension and thyroid disease presents with complaints of right-sided chest pain x3 days. Tenderness to palpation noted of right costochondral area, physical exam was otherwise normal. Chest x-ray is negative for acute findings. EKG is without acute findings. + Dimer-CTA chest was performed and was negative for acute findings. Initial and repeat troponins x 2 are normal. Patient's pain significantly improved with naproxen. Heart score = 3. Suspect patient's chest pain is due to costochondritis, however I do recommend patient follow-up with cardiology for further evaluation and testing within 2 days. Patient is nontoxic-appearing and stable for discharge home. Discussed very strict return precautions in great detail with patient who verbalizes understanding. Critical care attestation.: If time is entered above; I have spent that time in minutes in the direct care of this critically ill patient, excluding procedure time. ED Disposition Clinical Impression: Other chest pain, Acute costochondritis Disposition: DC-01 TO HOME OR SELFCARE Is pt being admited?: No Condition: Stable Instructions: Chest Pain (ED), Costochondritis (ED)
--- NOTE | 2019-08-19 12:44 | XRay Report ---
CHEST 2 VIEWS INDICATION / CLINICAL INFORMATION: Chest Pain. COMPARISON: 10/06/2017 FINDINGS: SUPPORT DEVICES: None. HEART / MEDIASTINUM: No significant abnormality. LUNGS / PLEURA: No significant pulmonary or pleural abnormality. No pneumothorax. ADDITIONAL FINDINGS: No significant additional findings. IMPRESSION: 1. No acute findings. Signer Name: Kaveh Valles MD Signed: 08/19/2019 12:39 PM Workstation Name: [id number]
[2019-08-19 13:35] LABS: Basophils % (Auto) 0.6 % (0.0-1.8); Eosinophils # (Auto) 0.3 K/mm3 (0.0-0.4); Eosinophils % (Auto) 3.7 % (0.0-4.3); Hematocrit 39.2 % (30.3-42.9); Hemoglobin 13.7 gm/dl (10.1-14.3); Lymphocytes # (Auto) 2.3 K/mm3 (1.2-5.4); Lymphocytes % (Auto) 30.9 % (13.4-35.0); Mean Corpuscular HGB Conc 35 % (30-34); Mean Corpuscular Volume 91 fl (79-97); Monocytes # (Auto) 0.4 K/mm3 (0.0-0.8); Monocytes % (Auto) 4.8 % (0.0-7.3); Platelet Count 277 K/mm3 (140-440); Red Blood Count 4.32 M/mm3 (3.65-5.03); Red Cell Distribution Width 13.6 % (13.2-15.2)
[2019-08-19 14:04] LABS: BUN/Creatinine Ratio 13; Blood Urea Nitrogen 13 mg/dL (7-17); Calcium 9.6 mg/dL (8.4-10.2); Hemolysis Index 43
[2019-08-19 16:10] VITALS: BP 111/68
--- NOTE | 2019-08-19 16:29 | Cat Scan Report ---
CTA CHEST WITH IV CONTRAST INDICATION: right sided chest pain and SOB. TECHNIQUE: Axial CT images were obtained through the chest after injection of IV contrast. 3 plane MIP reconstru ctions were produced. All CT scans at this location are performed using CT dose reduction for ALARA b y means of automated exposure control. COMPARISON: None available. FINDINGS: Pulmonary Arteries: No pulmonary emboli. Thoracic Aorta: No acute abnormality. Heart: Normal. Lungs: No acute air space or interstitial disease. Pleura: No pleural effusion. No pneumothorax. Lymph Nodes: No significant adenopathy. Additional Findings: None. Upper Abdomen: No acute findings. Skeletal Structures: No significant osseous abnormality. IMPRESSION: 1. No CT evidence for pulmonary embolism. 2. No acute findings. Signer Name: Bobby Leon MD Signed: 08/19/2019 4:24 PM Workstation Name: [id number]
[2019-08-19] MEDS: NAPROXEN 500 MG TAB PO ONE (17:20)
== END 2019-08-19 18:35 | disposition home or self-care (01) ==
LOC: ED 11:48
DX: M94.0 Chondrocostal junction syndrome [Tietze] (principal); I10 Essential (primary) hypertension; E03.9 Hypothyroidism, unspecified; Z79.899 Other long term (current) drug therapy; Z98.890 Other specified postprocedural states
CPT/HCPCS: 36415; 71046; 71275; 80048; 84443; 84484; 85025; 85379; 93005; 93010; 99284; Q9967

== ENCOUNTER 2019-10-29 22:37 | Emergency (ER) | payer SELFPAY ==
[2019-10-29 23:39] LABS: Basophils # (Auto) 0.1 K/mm3 (0.0-0.1); Basophils % (Auto) 0.6 % (0.0-1.8); Eosinophils # (Auto) 0.2 K/mm3 (0.0-0.4); Eosinophils % (Auto) 1.7 % (0.0-4.3); Hemoglobin 14.1 gm/dl (10.1-14.3); Lymphocytes # (Auto) 2.9 K/mm3 (1.2-5.4); Lymphocytes % (Auto) 30.5 % (13.4-35.0); Mean Corpuscular HGB Conc 35 % (30-34); Mean Corpuscular Volume 89 fl (79-97); Monocytes # (Auto) 0.6 K/mm3 (0.0-0.8); Monocytes % (Auto) 6.6 % (0.0-7.3); Platelet Count 278 K/mm3 (140-440); Red Blood Count 4.49 M/mm3 (3.65-5.03); Red Cell Distribution Width 13.3 % (13.2-15.2)
[2019-10-29 23:52] LABS: BUN/Creatinine Ratio 12; Blood Urea Nitrogen 16 mg/dL (7-17); Calcium 9.8 mg/dL (8.4-10.2); Hemolysis Index 32
--- NOTE | 2019-10-29 23:52 | Emergency Department Report ---
ED Chest Pain HPI - General Chief Complaint: Chest Pain Stated Complaint: CHEST PAIN Time Seen by Provider: 10/29/19 23:48 Source: patient Mode of arrival: Ambulatory Limitations: No Limitations - History of Present Illness Initial Comments: This is a very pleasant 54-year-old female who presents the emergency department with a chief complaint of midsternal chest pressure that has been constant over the past week. She describes this as pressure with a feeling of someone sitting on her chest. She rates the severity the symptoms a 6 out of 10. She denies any radiating pain. She reports associated shortness of breath that is not exertional but is aggravated by lying flat. She reports she feels like she needs to prop pillows up behind her. She has a past medical history of hypertension on triamterene and hypothyroidism on levothyroxine. She denies any history of hyperlipidemia, smoking or diabetes. She does have a family history of coronary artery disease in her dad who had an NV at 67. She denies any associated fever, chills, night sweats, headache, dizziness, blurry vision, nausea, vomiting, diarrhea, recent surgeries, recent travel, recent sick contacts, lower extremity edema or pain. - Related Data Home Medications Medication Instructions Recorded Confirmed Last Taken Levothyroxine [Synthroid] 50 mcg PO QDAY 10/16/17 10/16/17 10/16/17 Previous Rx's Medication Instructions Recorded Last Taken Type Acetaminophen [Acetaminophen TAB] 650 mg PO Q4H PRN #30 tablet 10/17/17 Unknown Rx Cetirizine HCl [Zyrtec] 10 mg PO DAILY #7 tablet 10/17/17 Unknown Rx Famotidine [Pepcid] 20 mg PO BID #20 tablet 10/17/17 Unknown Rx Fluticasone [Flonase] 1 spray NS QDAY #1 bottle 10/17/17 Unknown Rx amLODIPine 10 mg PO QDAY #30 tablet 10/17/17 Unknown Rx lisinopriL [Zestril TAB] 20 mg PO QDAY #30 tablet 10/17/17 Unknown Rx Methocarbamol [Robaxin] 1,000 mg PO TID PRN #20 tablet 08/19/19 Unknown Rx Naproxen 500 mg PO BID PRN #10 tablet 08/19/19 Unknown Rx traMADoL [Ultram 50 MG tab] 50 mg PO Q8HR PRN #8 tablet 08/19/19 Unknown Rx Azithromycin [Zithromax Z-DEAN] 0 mg PO DAILY #1 tab 10/30/19 Unknown Rx guaiFENesin/CODEINE [Robitussin AC] 5 ml PO Q6HR #60 oral.liqd 10/30/19 Unknown Rx Allergies Allergy/AdvReac Type Severity Reaction Status Date / Time No Known Allergies Allergy Verified 08/19/19 11:51 Heart Score - HEART Score History: Slightly suspicious EKG: Non-specific Age: 45-65 Risk factors: 1-2 risk factors Troponin: < normal limit HEART Score: 3 ED Review of Systems ROS: Stated complaint: CHEST PAIN Other details as noted in HPI Comment: All other systems reviewed and negative Constitutional: denies: chills, fever Eyes: denies: eye pain, eye discharge, vision change ENT: denies: ear pain, throat pain Respiratory: shortness of breath. denies: cough, wheezing Cardiovascular: as per HPI, chest pain, orthopnea. denies: palpitations Endocrine: no symptoms reported Gastrointestinal: denies: abdominal pain, nausea, diarrhea Genitourinary: denies: urgency, dysuria, discharge Musculoskeletal: denies: back pain, joint swelling, arthralgia Skin: denies: rash, lesions Neurological: denies: headache, weakness, paresthesias Psychiatric: denies: anxiety, depression Hematological/Lymphatic: denies: easy bleeding, easy bruising ED Past Medical Hx - Past Medical History Previous Medical History?: Yes Hx Hypertension: Yes (no meds) Additional medical history: hypothyroidism - Surgical History Past Surgical History?: Yes Additional Surgical History: Lysis of adhesions - Social History Smoking Status: Never Smoker - Medications Home Medications: Home Medications Medication Instructions Recorded Confirmed Last Taken Type Levothyroxine [Synthroid] 50 mcg PO QDAY 10/16/17 10/16/17 10/16/17 History Acetaminophen [Acetaminophen TAB] 650 mg PO Q4H PRN #30 tablet 10/17/17 Unknown Rx Cetirizine HCl [Zyrtec] 10 mg PO DAILY #7 tablet 10/17/17 Unknown Rx Famotidine [Pepcid] 20 mg PO BID #20 tablet 10/17/17 Unknown Rx Fluticasone [Flonase] 1 spray NS QDAY #1 bottle 10/17/17 Unknown Rx amLODIPine 10 mg PO QDAY #30 tablet 10/17/17 Unknown Rx lisinopriL [Zestril TAB] 20 mg PO QDAY #30 tablet 10/17/17 Unknown Rx Methocarbamol [Robaxin] 1,000 mg PO TID PRN #20 tablet 08/19/19 Unknown Rx Naproxen 500 mg PO BID PRN #10 tablet 08/19/19 Unknown Rx traMADoL [Ultram 50 MG tab] 50 mg PO Q8HR PRN #8 tablet 08/19/19 Unknown Rx Azithromycin [Zithromax Z-DEAN] 0 mg PO DAILY #1 tab 10/30/19 Unknown Rx guaiFENesin/CODEINE [Robitussin AC] 5 ml PO Q6HR #60 oral.liqd 10/30/19 Unknown Rx ED Physical Exam - General Limitations: No Limitations General appearance: alert, in no apparent distress - Head Head exam: Present: atraumatic, normocephalic - Eye Eye exam: Present: normal appearance, PERRL, EOMI Pupils: Present: normal accommodation - ENT ENT exam: Present: normal exam, normal orophraynx, mucous membranes moist, TM's normal bilaterally - Neck Neck exam: Present: normal inspection, full ROM. Absent: tenderness, meningismus - Respiratory Respiratory exam: Present: normal lung sounds bilaterally. Absent: respiratory distress, wheezes, rales, rhonchi, stridor - Cardiovascular Cardiovascular Exam: Present: regular rate, normal rhythm, normal heart sounds. Absent: systolic murmur, diastolic murmur, rubs, gallop - GI/Abdominal GI/Abdominal exam: Present: soft, normal bowel sounds. Absent: tenderness, guarding, rebound - Extremities Exam Extremities exam: Present: normal inspection, full ROM, normal capillary refill. Absent: tenderness, calf tenderness (Negative posterior calf tenderness, no lower extremity edema) - Back Exam Back exam: Present: normal inspection - Neurological Exam Neurological exam: Present: alert, oriented X3 - Psychiatric Psychiatric exam: Present: normal affect, normal mood - Skin Skin exam: Present: warm, dry, intact, normal color. Absent: rash ED Course Vital Signs 10/29/19 23:04 Temperature 98.0 F Pulse Rate 112 H Respiratory 18 Rate Blood Pressure 173/92 O2 Sat by Pulse 98 Oximetry - Reevaluation(s) Reevaluation #1: 10/30/19 02:42 The patient's EKG was unchanged from previous, troponin x2-. She was given a GI cocktail which did not improve her symptoms. She reported that she has been having cough and her shortness of breath is worse when lying down. She is conc erned she may have COVID-19. Patient has no fever or hypoxia and is not have any increased work of breathing. I ordered a breathing treatment to see if this could potentially help with the pressure in her chest. At this time the patient has a relatively low heart score at 3 and is a good candidate to go home from a cardiac standpoint. She also had a recent stress test in 2018 that was negative . She had a negative d-dimer making PE unlikely. She had no widening of the mediastinum no tearing or ripping pain to the back making acute aortic dissection unlikely. Bilateral radial pulses were equal. She had no signs of pneumonia on the x-ray and no pneumothorax or pneumomediastinum or pneum operitoneum. Patient is very stable and in no distress vital signs are stable she was offered observation in the hospital however she politely declined and preferred to go home. Reevaluation #2: 10/30/19 02:59 Patient was given a breathing treatment and reports this did not help. She states the only thing that has been helping her is Mucinex at home. She states she feels as if something in the top of her chest and bottom of her throat needs to be coughed up but she is unable to do that when she takes Mucinex that helps. We had a lengthy discussion about staying in the hospital versus going home and she politely declined observation in the hospital decided she wanted to go home to go to sleep. We will write her for some codeine cough syrup in addition to azithromycin to cover for atypical infections due to her productive cough and recommended she return to emerge from the change or worsening symptoms. We did consider COVID-19 is a diagnosis however is the fact the patient is not have any increased work of breathing, is not hypoxic and otherwise appears well I will discharge her and recommend she return the emerge department any change or worsening symptoms. Also recommend that she self quarantine for at least 7 days or 72 hours after symptoms resolve. She verbalized understanding these instructions and all of her questions were answered. WONG score - Wong Score Age > 65: (0) No Aspirin use within the Past 7 Days: (0) No 3 or more CAD Risk Factors: (0) No 2 or more Angina events in past 24 hrs: (0) No Known CAD with more than 50% Stenosis: (0) No Elevated Cardiac Markers: (0) No ST Deviation Greater than 0.5mm: (0) No WONG Score: 0 ED Medical Decision Making - Lab Data Result diagrams: 10/29/19 23:22 10/29/19 23:22 Lab Results 10/29/19 10/29/19 10/30/19 Range/Units 23:22 23: 00:00 WBC 9.5 (4.5-11.0) K/mm3 RBC 4.49 (3.65-5.03) M/mm3 Hgb 14.1 (10.1-14.3) gm/dl Hct 40.0 (30.3-42.9) % MCV 89 (79-97) fl MCH 31 (28-32) pg MCHC 35 H (30-34) % RDW 13.3 (13.2-15.2) % Plt Count 278 (140-440) K/mm3 Lymph % (Auto) 30.5 (13.4-35.0) % [place] % (Auto) 6.6 (0.0-7.3) % Eos % (Auto) 1.7 (0.0-4.3) % Baso % (Auto) 0.6 (0.0-1.8) % Lymph # 2.9 (1.2-5.4) K/mm3 [place] # 0.6 (0.0-0.8) K/mm3 Eos # 0.2 (0.0-0.4) K/mm3 Baso # 0.1 (0.0-0.1) K/mm3 Seg Neutrophils % 60.6 (40.0-70.0) % Seg Neutrophils # 5.8 (1.8-7.7) K/mm3 D-Dimer 195.53 (0-234) ng/mlDDU Sodium 138 (137-145) mmol/L Potassium 3.9 (3.6-5.0) mmol/L Chloride 100.2 (98-107) mmol/L Carbon Dioxide 24 (22-30) mmol/L Anion Gap 18 mmol/L BUN 16 (7-17) mg/dL Creatinine 1.3 H (0.7-1.2) mg/dL Estimated GFR 52 ml/min BUN/Creatinine Ratio 12 % Glucose 109 H (65-100) mg/dL Calcium 9.8 (8.4-10.2) mg/dL Troponin T < 0.010 (0.00-0.029) ng/mL NT-Pro-B Natriuret Pep (0-900) pg/mL 10/30/19 10/30/19 Range/Units 00:00 01:38 WBC (4.5-11.0) K/mm3 RBC (3.65-5.03) M/mm3 Hgb (10.1-14.3) gm/dl Hct (30.3-42.9) % MCV (79-97) fl MCH (28-32) pg MCHC (30-34) % RDW (13.2-15.2) % Plt Count (140-440) K/mm3 Lymph % (Auto) (13.4-35.0) % [place] % (Auto) (0.0-7.3) % Eos % (Auto) (0.0-4.3) % Baso % (Auto) (0.0-1.8) % Lymph # (1.2-5.4) K/mm3 [place] # (0.0-0.8) K/mm3 Eos # (0.0-0.4) K/mm3 Baso # (0.0-0.1) K/mm3 Seg Neutrophils % (40.0-70.0) % Seg Neutrophils # (1.8-7.7) K/mm3 D-Dimer (0-234) ng/mlDDU Sodium (137-145) mmol/L Potassium (3.6-5.0) mmol/L Chloride (98-107) mmol/L Carbon Dioxide (22-30) mmol/L Anion Gap mmol/L BUN (7-17) mg/dL Creatinine (0.7-1.2) mg/dL Estimated GFR ml/min BUN/Creatinine Ratio % Glucose (65-100) mg/dL Calcium (8.4-10.2) mg/dL Troponin T < 0.010 (0.00-0.029) ng/mL NT-Pro-B Natriuret Pep 6.88 (0-900) pg/mL - EKG Data -: EKG Interpreted by [place] EKG shows normal: sinus rhythm Rate: normal (97) - EKG Data When compared to previous EKG there are: no significant change, previous EKG unavailable Interpretation: no acute changes, normal EKG 10/29/19 23:[address] or T wave abnormalities, no STEMI, normal axis, normal intervals, no change from 08/31/2019. - Radiology Data Radiology results: report reviewed, image reviewed XRay Report Signed Patient: STACEY ROACH MR#: Arminda [id number] : 1965 Acct:[id number] Age/Sex: 54 / F ADM Date: 10/29/19 Loc: ED Attending Dr: Ordering Physician: SAAD LI MD Date of Service: 10/29/19 Procedure(s): XR chest routine 2V Accession Number(s): [id number] cc: SAAD LI MD Fluoro Time In Minutes: CHEST 2 VIEWS 2332 INDICATION / CLINICAL INFORMATION: Chest Pain COMPARISON: Chest x-ray and CTA chest 08/19/2019 FINDINGS: SUPPORT DEVICES: None. HEART / MEDIASTINUM: No significant abnormality. LUNGS / PLEURA: No areas of consolidation are seen. No obvious acute infiltrates are noted. No pleural effusions are seen. On lateral projection in the retrosternal area there is a question of a small nodule measuring roughly 4 mm which was not obvious previously and not obvious on a CTA chest recently. Probably this is artifact could be followed. No pneumothorax. ADDITIONAL FINDINGS: No significant additional findings. IMPRESSION: No significant acute abnormality. Possible nodule on lateral view. Signer Name: Tayo Yang MD Signed: 10/29/2019 11:51 PM Workstation Name: [id number] - Differential Diagnosis ACS, PE, bronchitis, pneumonia, COVID-19 Critical care attestation.: If time is entered above; I have spent that time in minutes in the direct care of this critically ill patient, excluding procedure time. ED Disposition Clinical Impression: Chest tightness, Nonspecific chest pain Disposition: DC-01 TO HOME OR SELFCARE Is pt being admited?: No Condition: Stable Instructions: Chest Pain (ED) Prescriptions: guaiFENesin/CODEINE [Robitussin AC] 5 ml PO Q6HR #60 oral.liqd Azithromycin [Zithromax Z-DEAN] 0 mg PO DAILY #1 tab Referrals: PRIMARY CARE, [Primary Care Provider] - 3-5 Days Time of Disposition: 03:00
--- NOTE | 2019-10-29 23:56 | XRay Report ---
CHEST 2 VIEWS 2332 INDICATION / CLINICAL INFORMATION: Chest Pain COMPARISON: Chest x-ray and CTA chest 08/19/2019 FINDINGS: SUPPORT DEVICES: None. HEART / MEDIASTINUM: No significant abnormality. LUNGS / PLEURA: No areas of consolidation are seen. No obvious acute infiltrates are noted. No pleura l effusions are seen. On lateral projection in the retrosternal area there is a question of a small n odule measuring roughly 4 mm which was not obvious previously and not obvious on a CTA chest recently . Probably this is artifact could be followed. No pneumothorax. ADDITIONAL FINDINGS: No significant additional findings. IMPRESSION: No significant acute abnormality. Possible nodule on lateral view. Signer Name: Tayo Yang MD Signed: 10/29/2019 11:51 PM Workstation Name: [id number]
[2019-10-30] MEDS ORDERED: LIDOCAINE VISCOUS 2% 15 ML ORAL LIQD PO ONE (00:42)
[2019-10-30] MEDS ORDERED: ALUM-MAG HYDROXIDE-SIMETHICONE 200-200-20MG/5ML ORAL LIQD 30 ML PO ONE (00:42)
[2019-10-30] MEDS ORDERED: ALBUTEROL 2.5 MG/3 ML NEBU IH ONE (02:35)
[2019-10-30 03:21] VITALS: BP 158/63
== END 2019-10-30 03:37 | disposition home or self-care (01) ==
LOC: ED 22:37
DX: R07.89 Other chest pain (principal); R06.02 Shortness of breath; I10 Essential (primary) hypertension; E03.9 Hypothyroidism, unspecified; Z79.899 Other long term (current) drug therapy
CPT/HCPCS: 36415; 71046; 80048; 83880; 84484; 85025; 85379; 93005

== ENCOUNTER 2020-11-19 11:26 | Emergency (ER) | payer SELFPAY ==
[2020-11-19 11:44] VITALS: BP 144/94
== END 2020-11-19 12:06 | disposition left against medical advice (07) ==
LOC: ED 11:26
DX: T78.40XA Allergy, unspecified, initial encounter (principal); Z53.21 Procedure and treatment not carried out due to patient leaving prior to being seen by health care provider; X58.XXXA Exposure to other specified factors, initial encounter